=== PATIENT | female | born 1970 | race Caucasian/White ===

== ENCOUNTER 2017-04-27 10:53 | Emergency (ER) | payer OTHER ==
[~2017-04-27] VITALS: Ht 170.2 cm; Wt 70.3 kg
[2017-04-27] MEDS ORDERED: ATENOLOL 25 MG25 M1 PO (11:07)
[2017-04-27] MEDS ORDERED: VYVANSE30 MG PO (11:08)
[2017-04-27] MEDS ORDERED: BIRTH CONTROL PO (11:09)
[2017-04-27 11:24] LABS: HEMATOCRIT 42.9 % (37.0-47.0); HEMOGLOBIN 14.6 gm/dL (12.0-15.0); MCH 33.8 pg (26.0-34.0); MCV 99.3 fL (80.0-100.0); MPV 7.4 fl. (7.2-11.1); NUCLEATED RBCS 0 /100WBC; PLATELET COUNT* 288 thou/uL (150-400); RBC 4.32 mil/uL (4.20-5.00); RDW-CV 12.8 % (10.5-14.5); WBC 13.5 thou/uL (4.0-11.0)
[2017-04-27 11:29] LABS: ANION GAP 10 mmol/L (7-16); BUN 10 mg/dL (7-18); CALCIUM 9.1 mg/dL (8.5-10.1); CHLORIDE 100 mmol/L (98-107); CO2 26 mmol/L (21-32); GLUCOSE 148 mg/dL (70-99); POTASSIUM 3.6 mmol/L (3.5-5.1); SODIUM 136 mmol/L (136-145)
[2017-04-27 11:40] LABS: ALBUMIN 3.3 g/dL (3.4-5.0); ALKALINE PHOSPHATASE 77 U/L (46-116); LIPASE 122 U/L (73-393); NT-PRO BRAIN NAT PEPTIDE 93 pg/mL (<300); SGOT 28 U/L (15-37); SGPT 28 U/L (30-65); TOTAL BILIRUBIN 0.6 mg/dL (<0.1-1.0); TOTAL PROTEIN 7.9 g/dL (6.4-8.2); TROPONIN-I LEVEL <0.06 ng/mL (<0.06)
[2017-04-27 11:45] LABS: ABSOLUTE EOSINOPHILS 0.1 thou/uL (0.0-0.7); ABSOLUTE LYMPHOCYTES 0.9 thou/uL (0.8-5.3); ABSOLUTE MONOCYTES 1.1 thou/uL (0.0-1.2); ABSOLUTE NEUTROPHILS 11.3 thou/uL (1.6-8.1)
[2017-04-27 11:46] LABS: PLATELET ESTIMATE ADEQUATE
[2017-04-27 14:39] VITALS: BP 150/97
--- NOTE | 2017-04-27 17:32 | EKG ---
[place] [address] ELECTROCARDIOGRAM REPORT Name: NIMA MORALES Room: 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: CAMILA : 1970 Requested By: Mal Pretty Order Number: [id number] MD: Khadar Powell Measurements Intervals [place] Rate: 98 P: 40 ME: 149 QRS: 84 QRSD: 85 T: 46 QT: 356 QTc: 455 Interpretive Statements Sinus rhythm Anterior infarct, old Baseline wander in lead(s) II,III,aVF,V1,V2,V3,V4,V5,V6 No previous ECG available for comparison Electronically Signed On 04-27-2017 17:31:47 TECHNICAL ASSISTANT by Khadar Powell [email or web address] <ELECTRONICALLY SIGNED> By: Khadar Powell MD, [facility] 04/27/17 1731 1100 1100 Khadar Powell MD, FACC /EPI
== END 2017-04-27 14:40 | disposition home or self-care (01) ==
LOC: M.ERS 10:53
PROVIDERS: Emergency Medicine
DX: R07.89 Other chest pain (principal); J06.9 Acute upper respiratory infection, unspecified; I10 Essential (primary) hypertension; F10.99 Alcohol use, unspecified with unspecified alcohol-induced disorder

== ENCOUNTER 2017-05-01 10:16 | Emergency (ER) | payer OTHER ==
[~2017-05-01] VITALS: Ht 170.2 cm; Wt 70.3 kg
[~2017-05-01 10:16] MED LIST: ATENOLOL 25 MG25 M1 PO; BIRTH CONTROL PO; VYVANSE30 MG PO
[2017-05-01] MEDS ORDERED: COZAAR 25 MG TA25 M1 PO (10:35)
[2017-05-01] MEDS ORDERED: LEVAQUIN 500 M500 M2 PO (11:48)
[2017-05-01] MEDS ORDERED: MEDROLDOSEPACK PO (11:48)
[2017-05-01] MEDS ORDERED: ACETAMINOPHEN-1 EAC1 PO (11:48)
[2017-05-01] MEDS ORDERED: PROAIR HFA8.5 GM INH (11:48)
[2017-05-01] MEDS ORDERED: PROMETHAZINE V473 ML PO (11:49)
[2017-05-01] MEDS ORDERED: TESSALON PERLE100 MG PO (11:50)
[2017-05-01 12:12] VITALS: BP 130/70
== END 2017-05-01 12:13 | disposition home or self-care (01) ==
LOC: M.ERS 10:16
DX: J18.9 Pneumonia, unspecified organism (principal); I10 Essential (primary) hypertension

== ENCOUNTER 2020-05-18 09:01 | Emergency (ER) | payer OTHER ==
[~2020-05-18] VITALS: Ht 170.2 cm; Wt 76.2 kg
[~2020-05-18 09:01] MED LIST changes: +ACETAMINOPHEN-1 EAC1 PO; +COZAAR 25 MG TA25 M1 PO; +LEVAQUIN 500 M500 M2 PO; +MEDROLDOSEPACK PO; +PROAIR HFA8.5 GM INH; +PROMETHAZINE V473 ML PO; +TESSALON PERLE100 MG PO
[2020-05-18] MEDS ORDERED: TELMISARTAN20 MG PO (09:10)
[2020-05-18] MEDS ORDERED: IBUPROFEN 800800 M1 PO (09:32)
[2020-05-18] MEDS ORDERED: FLEXERIL PO (09:32)
[2020-05-18 09:54] VITALS: BP 146/86
== END 2020-05-18 09:55 | disposition home or self-care (01) ==
LOC: M.ERS 09:01
DX: M54.5 Low back pain (principal); I10 Essential (primary) hypertension